=== PATIENT | female | born 1990 | race Caucasian/White ===

== ENCOUNTER 2020-09-04 13:40 | Emergency (ER) | payer SELFPAY ==
[~2020-09-04] VITALS: Ht 165.1 cm; Wt 108.9 kg
[~2020-09-04 13:40] MED LIST: HYDACE5 PO
[2020-09-04] MEDS ORDERED: Zithromax250 MG PO (14:57)
== END 2020-09-04 15:10 | disposition home or self-care (01) ==
LOC: ER 13:40
DX: R05 Cough (principal); R09.81 Nasal congestion; R07.0 Pain in throat; F17.200 Nicotine dependence, unspecified, uncomplicated
CPT/HCPCS: 87081; 87430; 99283

== ENCOUNTER 2022-09-01 09:36 | Emergency (ER) | payer SELFPAY ==
[~2022-09-01] VITALS: Ht 170.2 cm; Wt 83.9 kg
[~2022-09-01 09:36] MED LIST changes: +Zithromax250 MG PO
[2022-09-01] MEDS ORDERED: HYDR1TAB94 PO (12:22)
== END 2022-09-01 12:34 | disposition home or self-care (01) ==
LOC: ER 09:36
DX: S16.1XXA Strain of muscle, fascia and tendon at neck level, initial encounter (principal); S50.02XA Contusion of left elbow, initial encounter; S20.219A Contusion of unspecified front wall of thorax, initial encounter; V89.2XXA Person injured in unspecified motor-vehicle accident, traffic, initial encounter; Z87.891 Personal history of nicotine dependence
CPT/HCPCS: 72040; 73080